=== PATIENT | female | born 1985 | race Caucasian/White ===

== ENCOUNTER 2017-10-09 06:10 | Inpatient (IN) | payer MEDICAID ==
[2017-10-09 07:53] LABS: RUPTURE FETAL MEMBRANES POSITIVE (NEGATIVE)
[2017-10-09] MEDS ORDERED: IBUPROFEN 600 MG TAB PO (08:00)
[2017-10-09] MEDS ORDERED: LIDOCAINE 1% (MPF) 30 ML INJ INJ (08:00)
[2017-10-09] MEDS ORDERED: MISOPROSTOL 200 MCG TAB PR (08:00)
[2017-10-09] MEDS ORDERED: OXYTOCIN 30 UNITS/LR 500 ML IV ×2 (08:00)
[2017-10-09] MEDS ORDERED: CARBOPROST 250 MCG INJ IM (08:00)
[2017-10-09] MEDS ORDERED: METHYLERGONOVINE 0.2 MG INJ IM (08:00)
[2017-10-09] MEDS ORDERED: BUTORPHANOL 2 MG INJ IV (08:00)
[2017-10-09] MEDS: LACTATED RINGER'S 1,000 ML IV ×4 (08:42→23:14)
[2017-10-09] MEDS: AMPICILLIN 2 GM/NS (PMX) 100 ML IV (08:48)
[2017-10-09 09:09] LABS: WHITE BLOOD COUNT 9.2 10^3/ul (4.8-10.8)
[2017-10-09 09:09] LABS: ADD MAN DIFF? NO; BASOPHILS % 0.2 % (0.0-2.0); EOSINOPHILS % 0.3 % (0.0-7.0); HEMATOCRIT 29.8 % (37.0-47.0); HEMOGLOBIN 9.6 g/dl (12.0-16.0); LYMPHOCYTES % 22.1 % (15.0-51.0); MEAN CORPUSCULAR HEMOGLOBIN 27.1 pg (29.0-33.0); MEAN CORPUSCULAR HGB CONC 32.2 g/dl (32.0-37.0); MEAN CORPUSCULAR VOLUME 84.2 fl (82.0-101.0); MEAN PLATELET VOLUME 10.3 fl (7.4-10.4); MONOCYTE # 0.7 10^3/ul (0.3-0.9); MONOCYTES % 7.4 % (0.0-11.0); NEUTROPHIL # 6.4 10^3/ul (1.6-7.5); NEUTROPHILS % 69.5 % (39.0-77.0); PLATELET COUNT 327 10^3/UL (140-415); RED BLOOD COUNT 3.54 10^6/ul (4.20-5.40); RED CELL DISTRIBUTION WIDTH 13.8 % (11.5-14.5)
[2017-10-09 09:15] LABS: ADD UMIC YES; UR ASCORBIC ACID NEGATIVE (NEGATIVE); UR BACTERIA FEW /HPF (NONE SEEN); UR BILIRUBIN (Dip) NEGATIVE (NEGATIVE); UR BLOOD (Dip) 1+ mg/dL (NEGATIVE); UR CLARITY SLIGHTLY CLOUDY (CLEAR); UR COLOR YELLOW (YELLOW); UR GLUCOSE (Dip) NEGATIVE (NEGATIVE); UR KETONES (Dip) TRACE mg/dL (NEGATIVE); UR LEUKOCYTE ESTERASE (Dip) TRACE Leu/ul (NEGATIVE); UR MUCUS FEW /HPF (NONE SEEN); UR NITRITE (Dip) NEGATIVE (NEGATIVE); UR RBC 8 /HPF (0-5); UR SPECIFIC GRAVITY (Dip) 1.017 (1.003-1.030); UR SQUAMOUS EPITHELIAL CELL FEW /HPF (FEW); UR TOTAL PROTEIN (Dip) 2+ mg/dl (NEGATIVE); UR UROBILINOGEN (Dip) 1+ mg/dL (NEGATIVE); UR WBC 7 /HPF (0-5)
[2017-10-09 09:29] LABS: INR 0.92; PROTIME 12.4 Sec (11.9-14.9)
[2017-10-09 09:30] LABS: PARTIAL THROMBOPLASTIN TIME 31.4 Sec (25.0-35.0)
[2017-10-09 09:35] LABS: ALANINE AMINOTRANSFERASE 32 IU/L (13-69); ALBUMIN 3.3 g/dl (3.3-4.9); ALBUMIN/GLOBULIN RATIO 0.97; ALKALINE PHOSPHATASE 196 IU/L (42-121); ANION GAP 17 (8-16); ASPARTATE AMINO TRANSFERASE 29 IU/L (15-46); BILIRUBIN,INDIRECT 0.1 mg/dl (0-1.1); BILIRUBIN,TOTAL 0.1 mg/dl (0.2-1.3); BLOOD UREA NITROGEN 9 mg/dl (7-20); CALCIUM 9.2 mg/dl (8.4-10.2); CARBON DIOXIDE 24 mmol/L (21-31); CHLORIDE 106 mmol/L (97-110); CREATININE 0.56 mg/dl (0.44-1.00); GLUCOSE 71 mg/dl (70-220); POTASSIUM 4.8 mmol/L (3.5-5.1); SODIUM 142 mmol/L (135-144); TOTAL PROTEIN 6.7 g/dl (6.1-8.1)
[2017-10-09 09:39] LABS: ALANINE AMINOTRANSFERASE 37 IU/L (13-69); ALBUMIN 3.3 g/dl (3.3-4.9); ALKALINE PHOSPHATASE 202 IU/L (42-121); ASPARTATE AMINO TRANSFERASE 31 IU/L (15-46); BILIRUBIN,INDIRECT 0.2 mg/dl (0-1.1); BILIRUBIN,TOTAL 0.2 mg/dl (0.2-1.3); TOTAL PROTEIN 7.2 g/dl (6.1-8.1)
[2017-10-09] MEDS: OXYTOCIN 30 UNITS/LR 500 ML IV (10:00)
[2017-10-09 10:01] LABS: HEPATITIS B SURFACE ANTIGEN NEGATIVE (NEGATIVE)
[2017-10-09] MEDS: AMPICILLIN 1 GM/NS (PMX) 50 ML IV ×3 (12:09→20:04)
[2017-10-09] MEDS ORDERED: LACTATED RINGER'S 1,000 ML IV (21:07)
[2017-10-09 21:42] LABS: RAPID PLASMA REAGIN NONREACTIVE (NR)
[2017-10-09] MEDS ORDERED: FENTAnyl 2MCG/ML-ROPIV 0.2% 100 ML (21:49)
[2017-10-09] MEDS ORDERED: NALOXONE (0.4 MG/ML) INJ IV (22:30)
[2017-10-09] MEDS ORDERED: DIPHENHYDRAMINE 50 MG INJ IV (22:30)
[2017-10-09] MEDS ORDERED: ONDANSETRON 4 MG INJ IV (22:30)
[2017-10-10] MEDS: AMPICILLIN 1 GM/NS (PMX) 50 ML IV ×2 (00:09→04:10)
[2017-10-10] MEDS: FENTAnyl 2MCG/ML-ROPIV 0.2% 100 ML BAG EPI (06:01)
[2017-10-10] MEDS: OXYTOCIN 30 UNITS/LR 500 ML IV ×3 (15:28→18:15)
[2017-10-10] MEDS: LACTATED RINGER'S 1,000 ML IV* ×2 (15:54→23:54)
[2017-10-10] MEDS ORDERED: HYDROCODONE/APAP (5/325) TAB PO (16:00)
[2017-10-10] MEDS ORDERED: SENNA/DOCUSATE NA (8.6MG/50MG) TAB PO (16:00)
[2017-10-10] MEDS ORDERED: MAGNESIUM HYDROXIDE 30ML CUP PO (16:00)
[2017-10-10] MEDS ORDERED: BENZOCAINE 20% 56 ML SPRAY TOP (16:00)
[2017-10-10] MEDS ORDERED: CARBOPROST 250 MCG INJ IM (16:00)
[2017-10-10] MEDS ORDERED: METHYLERGONOVINE 0.2 MG INJ IM (16:00)
[2017-10-10] MEDS ORDERED: MISOPROSTOL 200 MCG TAB PR (16:00)
[2017-10-10] MEDS ORDERED: ZOLPIDEM 5 MG TAB PO (16:00)
[2017-10-10] MEDS ORDERED: ACETAMINOPHEN 325 MG TAB PO (16:00)
[2017-10-10] MEDS ORDERED: DIPHENHYDRAMINE 25 MG CAP PO (16:00)
[2017-10-10] MEDS ORDERED: OXYTOCIN 30 UNITS/LR 500 ML IV (16:00)
[2017-10-10] MEDS: LANOLIN 7 GM TUBE TOP (17:06)
[2017-10-10] MEDS: WITCH HAZEL/GLYCERIN PAD PR (17:07)
[2017-10-10] MEDS: IBUPROFEN 800 MG TAB PO (18:00)
[2017-10-11] MEDS: IBUPROFEN 800 MG TAB PO ×4 (00:34→23:38)
[2017-10-11 08:51] LABS: ADD MAN DIFF? NO
[2017-10-11 08:57] LABS: BASOPHILS % 0.3 % (0.0-2.0); EOSINOPHILS # 0.1 10^3/ul (0.0-0.5); EOSINOPHILS % 0.7 % (0.0-7.0); HEMATOCRIT 22.4 % (37.0-47.0); HEMOGLOBIN 7.3 g/dl (12.0-16.0); LYMPHOCYTES # 2.4 10^3/ul (0.8-2.9); LYMPHOCYTES % 20.2 % (15.0-51.0); MEAN CORPUSCULAR HEMOGLOBIN 27.5 pg (29.0-33.0); MEAN CORPUSCULAR HGB CONC 32.6 g/dl (32.0-37.0); MEAN CORPUSCULAR VOLUME 84.5 fl (82.0-101.0); MEAN PLATELET VOLUME 10.2 fl (7.4-10.4); MONOCYTE # 0.8 10^3/ul (0.3-0.9); NEUTROPHIL # 8.5 10^3/ul (1.6-7.5); NEUTROPHILS % 70.9 % (39.0-77.0); NUCLEATED RED BLOOD CELLS% 0.3 /100WBC (0.0-0.0); PLATELET COUNT 275 10^3/UL (140-415); RED BLOOD COUNT 2.65 10^6/ul (4.20-5.40); RED CELL DISTRIBUTION WIDTH 14.4 % (11.5-14.5)
[2017-10-11] MEDS: LACTATED RINGER'S 1,000 ML IV* (23:53)
[2017-10-12] MEDS: IBUPROFEN 800 MG TAB PO ×3 (05:47→11:57)
[2017-10-12] MEDS: VARICELLA VACCINE LIVE/PF 1,350 UNIT/0.5 ML ML SC* (09:00)
[2017-10-12] MEDS: DIPHTH/TET/ACEL PERTUSS (ADULT) 0.5 ML VIAL IM* (09:00)
[2017-10-12] MEDS: MEASLES,MUMPS,RUBELLA VACCINE INJ SC* (09:00)
== END 2017-10-12 13:00 | disposition home or self-care (01) | DRG 775 ==
LOC: OBT 06:10 → L-D 06:10 → PP1 10-10 15:50 → OBT 07:22 → L-D 07:15
PROVIDERS: Obstetrics & Gynecology
PROC: 10E0XZZ Delivery of Products of Conception, External Approach (ICD-10-PCS; principal; 2017-10-10)
PROC: 3E033VJ Introduction of Other Hormone into Peripheral Vein, Percutaneous Approach (ICD-10-PCS; 2017-10-10)
DX: O60.14X0 Preterm labor third trimester with preterm delivery third trimester, not applicable or unspecified (principal); Z37.0 Single live birth; Z3A.36 36 weeks gestation of pregnancy
CPT/HCPCS: 62319; 76815; 80053; 80076; 81001; 84112; 85025; 85610; 85730; 86592; 86850; 86900; 86901; 87340; 99464

== ENCOUNTER 2017-11-11 04:25 | Emergency (ER) | payer MEDICAID ==
[2017-11-11] MEDS: LIDOCAINE/MYLANTA 40 ML BTL PO (06:46)
[2017-11-11] MEDS: ONDANSETRON 4 MG INJ IV (06:46)
[2017-11-11] MEDS: FAMOTIDINE 20 MG INJ IV (06:46)
[2017-11-11] MEDS: SOD CHLORIDE 0.9% 1,000 ML IV (06:47)
[2017-11-11 07:14] LABS: ADD MAN DIFF? NO
[2017-11-11 07:15] LABS: WHITE BLOOD COUNT 9.8 10^3/ul (4.8-10.8)
[2017-11-11 07:15] LABS: BASOPHILS % 0.4 % (0.0-2.0); EOSINOPHILS # 0.2 10^3/ul (0.0-0.5); EOSINOPHILS % 2.4 % (0.0-7.0); HEMATOCRIT 33.9 % (37.0-47.0); HEMOGLOBIN 10.3 g/dl (12.0-16.0); LYMPHOCYTES # 2.6 10^3/ul (0.8-2.9); LYMPHOCYTES % 25.9 % (15.0-51.0); MEAN CORPUSCULAR HEMOGLOBIN 25.2 pg (29.0-33.0); MEAN CORPUSCULAR HGB CONC 30.4 g/dl (32.0-37.0); MEAN CORPUSCULAR VOLUME 82.9 fl (82.0-101.0); MEAN PLATELET VOLUME 10.8 fl (7.4-10.4); MONOCYTE # 0.8 10^3/ul (0.3-0.9); MONOCYTES % 7.8 % (0.0-11.0); NEUTROPHIL # 6.2 10^3/ul (1.6-7.5); NEUTROPHILS % 63.2 % (39.0-77.0); PLATELET COUNT 318 10^3/UL (140-415); RED BLOOD COUNT 4.09 10^6/ul (4.20-5.40); RED CELL DISTRIBUTION WIDTH 14.3 % (11.5-14.5)
[2017-11-11 07:23] LABS: ADD UMIC YES; UR ASCORBIC ACID 40 mg/dL (NEGATIVE); UR BACTERIA FEW /HPF (NONE SEEN); UR BILIRUBIN (Dip) NEGATIVE (NEGATIVE); UR BLOOD (Dip) 1+ mg/dL (NEGATIVE); UR CLARITY CLEAR (CLEAR); UR COLOR YELLOW (YELLOW); UR GLUCOSE (Dip) NEGATIVE (NEGATIVE); UR KETONES (Dip) NEGATIVE (NEGATIVE); UR LEUKOCYTE ESTERASE (Dip) 1+ Leu/ul (NEGATIVE); UR MUCUS MANY /HPF (NONE SEEN); UR NITRITE (Dip) NEGATIVE (NEGATIVE); UR RBC 34 /HPF (0-5); UR SPECIFIC GRAVITY (Dip) 1.031 (1.003-1.030); UR TOTAL PROTEIN (Dip) 1+ mg/dl (NEGATIVE); UR UROBILINOGEN (Dip) 1+ mg/dL (NEGATIVE); UR WBC 13 /HPF (0-5)
[2017-11-11 07:35] LABS: ALANINE AMINOTRANSFERASE 28 IU/L (13-69); ALBUMIN 4.3 g/dl (3.3-4.9); ALBUMIN/GLOBULIN RATIO 1.07; ALKALINE PHOSPHATASE 116 IU/L (42-121); ANION GAP 18 (8-16); ASPARTATE AMINO TRANSFERASE 46 IU/L (15-46); BILIRUBIN,INDIRECT 0.3 mg/dl (0-1.1); BILIRUBIN,TOTAL 0.3 mg/dl (0.2-1.3); BLOOD UREA NITROGEN 16 mg/dl (7-20); CALCIUM 9.3 mg/dl (8.4-10.2); CARBON DIOXIDE 24 mmol/L (21-31); CHLORIDE 107 mmol/L (97-110); CREATININE 0.69 mg/dl (0.44-1.00); GLUCOSE 98 mg/dl (70-220); LIPASE 326 U/L (23-300); POTASSIUM 4.3 mmol/L (3.5-5.1); SODIUM 145 mmol/L (135-144); TOTAL PROTEIN 8.3 g/dl (6.1-8.1)
== END 2017-11-11 08:46 | disposition home or self-care (01) ==
LOC: E/R 04:25
DX: K80.70 Calculus of gallbladder and bile duct without cholecystitis without obstruction (principal); R40.2252 Coma scale, best verbal response, oriented, at arrival to emergency department; D64.9 Anemia, unspecified; N30.01 Acute cystitis with hematuria; R40.2142 Coma scale, eyes open, spontaneous, at arrival to emergency department; R40.2362 Coma scale, best motor response, obeys commands, at arrival to emergency department
CPT/HCPCS: 36415; 71045; 76705; 80053; 81001; 81025; 83690; 85025; 93005; 96374; 96375; 99285-25